=== PATIENT | female | born 2000 | race Caucasian/White ===

== ENCOUNTER → 2020-03-23 14:47 | Outpatient (CLI) | payer OTHER, SELFPAY ==
[2020-03-24 09:04] LABS: Covid-19 Nasal PCR Sendout UK NOT DETECTED
== END ==
PROVIDERS: PCP Specialist; Visit Provider Nurse Practitioner Family
DX: Z03.818 Encounter for observation for suspected exposure to other biological agents ruled out (principal)
CPT/HCPCS: U0003